=== PATIENT | female | born 1955 | race American Indian/Alaskan Native ===

== ENCOUNTER 2019-04-03 22:59 | Emergency (ER) | payer MEDICAID ==
[~2019-04-03] VITALS: Ht 160 cm; Wt 129.0 kg
[~2019-04-03 22:59] MED LIST: ACET-38 PO; ALBU18HF2 INH; ASPI-611 PO; ATOR20TA PO; DIPH25TA62 PO; DOCU-28 PO; EPIN0.3P3 IJ; HYDR25TA4 PO; LEVO25TA2 PO; LOSA50TA3 PO; SENN-25 PO
--- NOTE | 2019-04-03 23:35 | NUR ---
XR in room.
[2019-04-03] MEDS ORDERED: HYDROcodone/acetaminophen 5mg/325mg tablet PO ONE (23:40)
[2019-04-03] MEDS ORDERED: INDO-12 PO (23:52)
[2019-04-04 00:15] VITALS: BP 176/58
== END 2019-04-04 00:16 | disposition home or self-care (01) ==
LOC: ER 23:00
DX: M10.9 Gout, unspecified (principal)
CPT/HCPCS: 73620; 99284